=== PATIENT | female | born 1990 | race Caucasian/White ===

== ENCOUNTER 2017-09-04 10:07 | Emergency (ER) | payer MEDICAID ==
[~2017-09-04] VITALS: Ht 165.1 cm; Wt 44.2 kg
[2017-09-04 10:19] VITALS: Ht 165.1 cm; Wt 44.2 kg
[2017-09-04 10:48] LABS: PLATELET COUNT 230 x10^3mcL (130-400)
[2017-09-04 10:51] LABS: BASOPHIL % 2.1 % (0-2)
[2017-09-04 11:18] LABS: UA SPECIFIC GRAVITY <=1.005 (1.005-1.035); microscopic required? YES; urine erythrocyte 3+ (NEGATIVE)
[2017-09-04 13:05] VITALS: BP 131/82
== END 2017-09-04 13:05 | disposition home or self-care (01) ==
LOC: ED 10:07
PROVIDERS: Emergency Medicine
DX: O20.0 Threatened abortion (principal); Z3A.09 9 weeks gestation of pregnancy
CPT/HCPCS: 36415

== ENCOUNTER 2018-08-03 16:56 | Emergency (ER) | payer MEDICAID ==
[~2018-08-03] VITALS: Ht 152.4 cm; Wt 48.5 kg
[2018-08-03 17:39] VITALS: Ht 152.4 cm; Wt 48.5 kg
[2018-08-03 19:05] LABS: BASOPHIL % 1.9 % (0-2); PLATELET COUNT 247 x10^3mcL (130-400); RED CELL DISTRIBUTION WIDTH 12.2 % (11.5-14.5)
[2018-08-03 19:29] LABS: UA SPECIFIC GRAVITY <=1.005 (1.005-1.035); microscopic required? YES; urine erythrocyte NEGATIVE (NEGATIVE)
[2018-08-03 20:27] VITALS: BP 110/78
== END 2018-08-03 20:27 | disposition home or self-care (01) ==
LOC: ED 16:56
PROVIDERS: Emergency Medicine
DX: O20.9 Hemorrhage in early pregnancy, unspecified (principal); O23.41 Unspecified infection of urinary tract in pregnancy, first trimester; Z3A.10 10 weeks gestation of pregnancy
CPT/HCPCS: 36415; 87491; 87591

== ENCOUNTER 2020-03-25 19:31 | Emergency (ER) | payer BC ==
[~2020-03-25] VITALS: Ht 152.4 cm; Wt 50.8 kg
[2020-03-25 19:37] VITALS: Ht 152.4 cm; Wt 50.8 kg
[2020-03-25 20:03] VITALS: BP 127/77
== END 2020-03-25 20:03 | disposition home or self-care (01) ==
LOC: ED 19:31
DX: S00.211A Abrasion of right eyelid and periocular area, initial encounter (principal); W01.198A Fall on same level from slipping, tripping and stumbling with subsequent striking against other object, initial encounter; Y93.89 Activity, other specified; Y92.89 Other specified places as the place of occurrence of the external cause; Y99.8 Other external cause status